=== PATIENT | male | born 1975 | race Caucasian/White ===

== ENCOUNTER 2021-05-19 01:13 | Emergency (ER) | payer MEDICAID ==
[~2021-05-19] VITALS: Ht 167.6 cm; Wt 81.0 kg
[2021-05-19 01:41] VITALS: BP 149/90
[2021-05-19] MEDS ORDERED: ACETAMINOPHEN 325MG TABLET PO NR (02:15)
[2021-05-19] MEDS ORDERED: NAPR-681 PO (02:15)
[2021-05-19] MEDS ORDERED: CIPR1DRO2 LEFT EAR (02:15)
== END 2021-05-19 02:35 | disposition home or self-care (01) ==
LOC: ER 01:13
DX: H60.92 Unspecified otitis externa, left ear (principal); S00.412A Abrasion of left ear, initial encounter; X58.XXXA Exposure to other specified factors, initial encounter; Y93.89 Activity, other specified; Y92.532 Urgent care center as the place of occurrence of the external cause
CPT/HCPCS: 99283